=== PATIENT | male | born 1995 | race Caucasian/White ===

== ENCOUNTER 2018-10-22 17:41 | Emergency (ER) | payer OTHER ==
--- NOTE | 2018-10-22 18:13 | EDM.PDOC ---
ED HPI GENERAL MEDICAL PROBLEM - General Chief Complaint: General Stated Complaint: LEFT SIDE INJURY Time Seen by Provider: 10/22/18 18:08 - History of Present Illness INITIAL COMMENTS - FREE TEXT/NARRATIVE: HISTORY AND PHYSICAL: History of present illness: Patient's 23-year-old white male presents status post fall which injured his left elbow and left hip. He sustained some minor abrasions he denies any other trauma or concern he is up-to-date on his tetanus Review of systems: As per history of present illness and below otherwise all systems reviewed and negative. Past medical history: As per history of present illness and as reviewed below otherwise noncontributory. Surgical history: As per history of present illness and as reviewed below otherwise noncontributory. Social history: No reported history of drug or alcohol abuse. Family history: As per history of present illness and as reviewed below otherwise noncontributory. Physical exam: HEENT: Atraumatic, normocephalic, pupils reactive, negative for conjunctival pallor or scleral icterus, mucous membranes moist, throat clear, neck supple, nontender, trachea midline. Lungs: Clear to auscultation, breath sounds equal bilaterally, chest nontender. Heart: S1S2, regular, negative for clicks, rubs, or JVD. Abdomen: Soft, nondistended, nontender. Negative for masses or hepatosplenomegaly. Negative for costovertebral tenderness. Pelvis: Stable mild tenderness to the left iliac crest dictation or point tenderness noted Genitourinary: Deferred. Rectal: Deferred. Extremities: Moderate swelling of his elbow with some minor abrasions noted posteriorly was good hemostasis dictation CMS neurovascular exam is unremarkable Neuro: Awake, alert, oriented. Cranial nerves II through XII unremarkable. Cerebellum unremarkable. Motor and sensory unremarkable throughout. Exam nonfocal. Diagnostics: X-ray pelvis left elbow Therapeutics: To be determined Impression: #1 observation status post fall #2 multiple abrasions/contusions #3 left elbow injury Definitive disposition and diagnosis as appropriate pending reevaluation and review of above. - Related Data Allergies Allergy/AdvReac Type Severity Reaction Status Date / Time No Known Allergies Allergy Verified 10/22/18 18:11 Home Meds: Home Meds . [No Known Home Meds] 10/22/18 [History] ED ROS GENERAL - Review of Systems Review Of Systems: ROS reveals no pertinent complaints other than HPI. ED EXAM, GENERAL - Physical Exam Exam: See Below (See dictation) Course - Vital Signs Last Recorded V/S: Last Vital Signs Temp 36.4 C 10/22/18 18:07 Pulse 87 10/22/18 18:07 Resp 18 10/22/18 18:07 BP 106/63 10/22/18 18:07 Pulse Ox 97 10/22/18 18:07 - Orders/Labs/Meds Orders: Active Orders 24 hr Category Date Time Status Elbow Min 3V Lt [CR] Stat Exams 10/22/18 18:10 Taken Pelvis 1V or 2V [CR] Stat Exams 10/22/18 18:11 Taken Departure - Departure Time of Disposition: 18:48 Disposition: Home, Self-Care 01 Condition: Good Clinical Impression: Multiple contusions, Abrasion, Fall - Discharge Information Referrals: PCP,None [Primary Care Provider] - Forms: ED Department Discharge Additional Instructions: The following information is given to patients seen in the emergency department who are being discharged to home. This information is to outline your options for follow-up care. We provide all patients seen in our emergency department with a follow-up referral. The need for follow-up, as well as the timing and circumstances, are variable depending upon the specifics of your emergency department visit. If you don't have a primary care physician on staff, we will provide you with a referral. We always advise you to contact your personal physician following an emergency department visit to inform them of the circumstance of the visit and for follow-up with them and/or the need for any referrals to a consulting specialist. The emergency department will also refer you to a specialist when appropriate. This referral assures that you have the opportunity for followup care with a specialist. All of these measure are taken in an effort to provide you with optimal care, which includes your followup. Under all circumstances we always encourage you to contact your private physician who remains a resource for coordinating your care. When calling for followup care, please make the office aware that this follow-up is from your recent emergency room visit. If for any reason you are refused follow-up, please contact the [facility] emergency department at and asked to speak to the emergency department charge nurse. Ultram as prescribed follow-up private medical doctor return as needed as discussed[] - My Orders Last 24 Hours: My Active Orders 10/22/18 18:10 Elbow Min 3V Lt [CR] Stat 10/22/18 18:11 Pelvis 1V or 2V [CR] Stat - Assessment/Plan Last 24 Hours: My Active Orders 10/22/18 18:10 Elbow Min 3V Lt [CR] Stat 10/22/18 18:11 Pelvis 1V or 2V [CR] Stat
--- NOTE | 2018-10-22 19:17 | CR ---
FINDINGS: Fall from 6 foot trailer Technique: Three-views of the left elbow Findings: Normal alignment. Olecranon spur. Mild soft tissue swelling. No effusion seen. No acute fracture. IMPRESSION: 1. No acute fracture. Dictated by Zabrina Liriano MD @ Oct 22 2018 7:16PM Signed by Dr. Zabrina Liriano @ Oct 22 2018 7:17PM
--- NOTE | 2018-10-22 19:19 | CR ---
Fall from 6 foot trailer Technique: AP pelvis. Findings: Normal anatomic alignment. No acute fractures seen. SI joints are within normal limits. IMPRESSION: No acute fracture. Dictated by Zabrina Liriano MD @ Oct 22 2018 7:17PM Signed by Dr. Zabrina Liriano @ Oct 22 2018 7:18PM
== END 2018-10-22 19:39 | disposition home or self-care (01) ==
LOC: MW.ED 17:41
DX: S50.312A Abrasion of left elbow, initial encounter (principal); W19.XXXA Unspecified fall, initial encounter
CPT/HCPCS: 72170; 72170-26; 73080-26-LT; 73080-LT; 99282; 99283-25